=== PATIENT | female | born 1950 | race Caucasian/White ===

== ENCOUNTER 2018-01-24 09:37 | Day surgery (SDC) | payer OTHER ==
--- NOTE | 2018-01-24 09:02 | GHP ---
[f rep st] PREOP HISTORY AND PHYSICAL DATE OF ADMISSION: 01/24/2018 The patient is slated for surgery on 01/24/2018 on the Gynecology service. HISTORY UPON ADMISSION: The patient is a 67-year-old, G2, P2, postmenopausal female who has had a th ickened endometrium for several years and has more recently been having postmenopausal bleeding. The patient has had a naturopathic approach to menopause and has been on hormone replacement. The patie nt had postmenopausal bleeding in May 2015 and was evaluated and advised of a thickened lining of 0. 9 cm with likely intrauterine polyps. The patient was set up for hysteroscopy, however, then cancele d the procedure. The patient did not have any persistent bleeding after this after she again saw a n aturopath who gave her additional supplements and the bleeding stopped. She began having bleeding ag ain after she changed those natural supplements in July to August of 2017. She had several day s of light brown bleeding. She reports that she increased her supplements again and the bleeding sto pped. She was advised though to proceed with an endometrial biopsy and this was performed in November . This showed a small amount of endometrium with no hyperplasia or malignancy. A repeat ultrasound was performed and the uterus is 8.7 x 3.8 x 4.8 cm with an endometrial thickness now of 1.2 cm. Ther e is an appearance in the fundal area of a mass 1.4 x 1.6 cm that is consistent with polypoid tissue with a vascular stalk. The patient also has 2 fibroids, 1.5 cm and 0.7 cm. After that endometrial b iopsy, the patient has been having more bleeding. It increased to a heavy amount in early December a nd the patient was told to increase her hormone replacement and this stabilized the bleeding. The char portillo had tapered down her hormones after 5 days and the bleeding has been contained. The patient wa s advised as to the risks and benefits of hysteroscopy and signed the consent form. 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 No history of abnormal Pap sme ars with the last Pap smear in fall with a different provider. PAST OBSTETRIC HISTORY: Two full-term vaginal deliveries in 1970 and 1973. Both LGA over 8.5 pounds . PAST MEDICAL HISTORY: No chronic medical conditions. Occasional insomnia. PAST SURGICAL HISTORY: Tonsils and adenoids removed as a child, laparoscopic cholecystectomy [place] [address] Reeves. ALLERGIES: No known drug allergies. CURRENT MEDICATIONS: Estradiol 1 mg daily in the morning. Progesterone 100 mg daily. Occasional Va lium, a quarter to a half a pill rarely per patient. Multiple naturopathic supplements and herbs. V itamin D daily. SOCIAL HISTORY: Patient is , no current sexual relationship. Patient is a nonsmoker. No al cohol or drug use. 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 PHYSICAL EXAM: At the time of preop, patient is a well-developed, thin, white female in no physical distress. Height 61 inches, weight 100 pounds, blood pressure 100/60. The patient is clinically afe brile. LUNGS: Clear to auscultation bilaterally. CARDIOVASCULAR: Regular rate and rhythm. ABDOME N: Soft and nondistended. PELVIC: Grade 3 uterine prolapse and cystocele. No rectocele noted. No adnexal masses noted. ASSESSMENT: A 67-year-old with postmenopausal bleeding and thickened endometrium with findings consi stent with a polyp. PLAN: Proceed with hysteroscopy and D and C on January 24. /[id number]/MODL
[2018-01-24] MEDS ORDERED: CLINDAMYCIN 900 MG/DEXTROSE 50 ML IV ONE (10:26)
[2018-01-24] MEDS ORDERED: LR 1,000 ML IV ONE (10:28)
[2018-01-24] MEDS ORDERED: SILVER NITRATE APPLICATOR 1 APPL TP ONE (10:30)
[2018-01-24] MEDS ORDERED: MIDAZOLAM 2 MG/2 ML VIAL IVP ONE (11:04)
--- NOTE | 2018-01-24 11:05 | PDANEPAE ---
ANE History of Present Illness DUB with polyp ANE Past Medical History - Cardiovascular History Hx Hypertension: No Hx Arrhythmias: No Hx Chest Pain: No Hx Coronary Artery / Peripheral Vascular Disease: No Hx CHF / Valvular Disease: No Hx Palpitations: No - Pulmonary History Hx COPD: No Hx Asthma/Reactive Airway Disease: No Hx Recent Upper Respiratory Infection: No Hx Oxygen in Use at Home: No Hx Sleep Apnea: No Sleep Apnea Screening Result - Last Documented: Negative - Neurologic History Hx Cerebrovascular Accident: No Hx Seizures: No Hx Dementia: No - Endocrine History Hx Diabetes: No - Renal History Hx Renal Disorders: No - Liver History Hx Hepatic Disorders: No - Neurological & Psychiatric Hx Hx Neurological and Psychiatric Disorders: No - Cancer History Hx Cancer: No - Congenital Disorder History Hx Congenital Disorders: No - GI History Hx Gastrointestinal Disorders: No - Other Health History Other Health History: wears reading glasses - Chronic Pain History Chronic Pain: No (occ back pain) - Surgical History Prior Surgeries: tonsillectomy. sariah DIEZ Review of Systems Review of Systems: - Exercise capacity METS (RN): 4 METS ANE Patient History - Allergies Allergies/Adverse Reactions: No Known Allergies Allergy (Verified 12/21/17 12:39) - Home Medications Home Medications: Estrogen,Con/M-Progest Acet 12/21/17 [Last Taken 01/23/18] Herbals/Supplements -Info Only 12/21/17 [Last Taken 01/23/18] - NPO status NPO Since - Liquids (Date): 01/24/18 NPO Since - Liquids (Time): 07:30 NPO Since - Solids (Date): 01/23/18 NPO Since - Solids (Time): 20:00 - Anes Hx Anes Hx: no prior problems - Smoking Hx Smoking Status: Never smoked - Family Anes Hx Family Hx Anesthesia Complications: none ANE Labs/Vital Signs - Labs Result Diagrams: 01/24/18 11:00 - Vital Signs Blood Pressure: 126/70 Heart Rate: 61 Respiratory Rate: 16 O2 Sat (%): 94 Height: 156.21 cm Weight: 46.72 kg ANE Physical Exam - Airway Neck exam: FROM Mallampati Score: Class 2 Mouth exam: normal dental/mouth exam - Pulmonary Pulmonary: no respiratory distress - Cardiovascular Cardiovascular: regular rate and rhythym - ASA Status ASA Status: II
[2018-01-24] MEDS ORDERED: MIDAZOLAM 2 MG/2 ML VIAL ONE (11:09)
[2018-01-24] MEDS ORDERED: fentaNYL 100 MCG/2 ML INJ ONE (11:11)
[2018-01-24] MEDS ORDERED: PROPOFOL 200 MG/20 ML VIAL ONE (11:12)
[2018-01-24 11:23] LABS: PLATELET COUNT 253 10^3/uL (150-400)
[2018-01-24] MEDS ORDERED: DEXAMETHASONE 4 MG/ML VIAL ONE (11:29)
[2018-01-24] MEDS ORDERED: ONDANSETRON 4 MG/2 ML VIAL ONE (11:56)
[2018-01-24] MEDS ORDERED: KETOROLAC 30 MG/1 ML SDV ONE (11:56)
[2018-01-24] MEDS ORDERED: NALOXONE HCL 0.4 MG/ML INJ IVP PRN (12:12)
[2018-01-24] MEDS ORDERED: fentaNYL 100 MCG/2 ML INJ IVP PRN (12:12)
[2018-01-24] MEDS ORDERED: PROMETHAZINE HCL 25 MG/ML INJ IVP PRN (12:12)
[2018-01-24] MEDS ORDERED: ONDANSETRON 4 MG/2 ML VIAL IVP PRN (12:12)
--- NOTE | 2018-01-24 12:13 | POSTANESTH ---
Post Anesthetic Evaluation Cardiovascular Status: Normal, Stable Respiratory Status: Normal, Stable Level of Consciousness/Mental Status: Can Participate in Eval Pain Control: Adequate, Prn Tx Ordered Nausea/Vomiting Control: Adequate, Prn Tx Ordered Complications Possibly Related to Anesthesia: None Noted
--- NOTE | 2018-01-24 12:25 | POSTOPPROG ---
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 tissue in fundus rem - firm, possibly myomas Inf/Abcess present in the surg proc area at time of surgery?: No Depth: Organ Space EBL: 50-100 Complications: none - fluid deficit at 40 ml Specimen(s): endometrial tissue - polyp vs fibroid
[2018-01-24 13:14] VITALS: PULSE 62
--- NOTE | 2018-01-24 13:19 | GOP ---
[f rep st] OPERATIVE REPORT DATE OF OPERATION: 01/24/2018 SURGEON: Heidy Dewitt MD ANESTHESIA: General endotracheal. ANESTHESIOLOGIST: Salvador Garay MD PREOPERATIVE DIAGNOSIS: Postmenopausal bleeding, thickened endometrium. POSTOPERATIVE DIAGNOSIS: Postmenopausal bleeding, thickened endometrium. PROCEDURE PERFORMED: Hysteroscopy. FINDINGS: INDICATIONS: Patient is a 67-year-old, para 2, white female who has had a thickened endometrium with postmenopausal bleeding off and on since 2014. At that time, the patient was advised to have hyster oscopy; however, she changed her naturopathic approach with hormones and the bleeding subsided and th patient declined having the hysteroscopy. At that time, the patient had a thickened area in the fu ndus that was consistent with possible polypoid tissue. Her lining was 0.9 cm. The patient began ornelas ving bleeding in the fall of 2016 and had a benign endometrial biopsy with scant tissue. The repeat ultrasound showed the lining thickened with the endometrial area in the fundus, now 1.2 cm. The denise ent also has fibroids in her myometrium of the uterus. As the bleeding is persisting, the patient de sired definitive treatment with a hysteroscopy and removal of the tissue. Risks and benefits of the procedure discussed and the consent form signed. DESCRIPTION OF PROCEDURE: The patient was taken to the operating room where, following satisfactory endotracheal anesthesia, the patient was placed in dorsal lithotomy position appropriate for vaginal procedures. The patient had urinated prior to coming to the operating room. The patient had SCDs on her lower extremities for DVT prophylaxis and received a dose of antibiotics prior to surgery. A st erile speculum was placed within the vagina and a single-tooth tenaculum was placed on the anterior l ip of the cervix. Gentle traction was applied and the cervix came down to the vaginal opening as the patient has significant uterine prolapse. Gentle traction was applied and the cervix was easily dil ated up to 6.5 Hegar dilator. Following this, the hysteroscope could be easily introduced into the u terine cavity. Good visualization was obtained. There was an area at the fundus that appeared polyp oid. The hysteroscopic morcellator was used and the tissue did appear firm enough texture that this was possibly fibroid tissue. The area at the left fundal portion was removed completely. Following this, the endometrial cavity appears normal. There was other small variations in the surface that po ssibly were polypoid and these were shaved down with the morcellator. The tubal ostia were visualize d and these were normal. The cervical canal was visualized and there were no polyps or fibroids note d through the canal. There was no evidence of perforation. Fluid deficit from the hysteroscopy was 40 mL. The hysteroscope was removed and the tenaculum taken off the cervix. There was minimal bleed ing. The patient was cleaned off and taken out of position and then awoken and taken to the recovery room in stable condition. There were no complications. Tissue was the endometrial contents with po ssible polypoid versus fibroid formation. /[id number]/MODL
[2018-01-24 13:27] VITALS: TEMP 98.4
[2018-01-24 13:28] VITALS: RESP 13
[2018-01-24 13:36] VITALS: BP 154/82; O2SAT 98
== END 2018-01-24 13:55 | disposition home or self-care (01) ==
LOC: FSGY 09:37
PROVIDERS: ATTEND Obstetrics & Gynecology
PROC: 0UDB8ZX Extraction of Endometrium, Via Natural or Artificial Opening Endoscopic, Diagnostic (ICD-10-PCS; principal; 2018-01-24 11:00)
DX: N95.0 Postmenopausal bleeding (principal); R93.8 Abnormal findings on diagnostic imaging of other specified body structures; Z79.890 Hormone replacement therapy
CPT/HCPCS: 58558; C1782; J1100; J1885; J2250; J2405; J2704; J3010

== ENCOUNTER → 2019-02-06 | Outpatient (CLI) | payer OTHER | LOC: FIMAGING 10:40 | PROVIDERS: ATTEND Family Medicine | DX: R09.02 Hypoxemia (principal); R05 Cough ==